=== PATIENT | male | born 1955 | race Caucasian/White ===

== ENCOUNTER 2016-06-03 11:32 | Emergency (ER) | payer OTHER ==
[2016-06-03 12:56] LABS: EOSINOPHIL 1.9 % (0-5); HCT 42.8 % (42.0-52.0); HGB 15.1 g/dl (13.2-18.0); LYMPHOCYTE 23.6 % (15-48); MCH 32.4 pg (25.0-31.0); MCHC 35.3 g/dL (32.0-36.0); MCV 91.8 fL (78.0-100.0); MONOCYTE 8.4 % (0-12); MPV 10.8 fL (6.0-9.5); NEUTROPHIL 65.1 % (41-80); PLT 202 K/uL (150-400); RBC 4.66 M/uL (4.70-6.00); RDW 14.8 % (11.5-14.0); WBC 6.8 K/uL (4.0-10.5)
[2016-06-03 13:02] LABS: TROPONIN T < 0.010 ng/mL
[2016-06-03 13:04] LABS: ALBUMIN 4.1 g/dL (3.5-5.0); BILIRUBIN - TOTAL 0.6 mg/dL (0.1-1.0); CREATININE 1.1 mg/dL (0.7-1.2); GLOBULIN (CALCULATION) 3.4 g/dL (2.2-4.2); POTASSIUM 4.1 mmol/L (3.5-5.1); TOTAL PROTEIN 7.5 g/dL (6.4-8.3)
[2016-06-03 13:20] LABS: CKMB 9.31 ng/mL (0.97-4.94)
[2016-06-03 14:46] LABS: TROPONIN T < 0.010 ng/mL
[2016-06-03 14:56] LABS: CKMB 7.83 ng/mL (0.97-4.94)
== END 2016-06-03 15:10 | disposition home or self-care (01) ==
LOC: FER 11:32
PROVIDERS: Nurse Practitioner Family
DX: J11.1 Influenza due to unidentified influenza virus with other respiratory manifestations (principal); I10 Essential (primary) hypertension; E78.5 Hyperlipidemia, unspecified; F17.210 Nicotine dependence, cigarettes, uncomplicated; Z79.82 Long term (current) use of aspirin; Z79.899 Other long term (current) drug therapy; Z87.09 Personal history of other diseases of the respiratory system; Z95.1 Presence of aortocoronary bypass graft
CPT/HCPCS: 36415; 71020; 80053; 82550; 82553; 84484; 85025; 87804; 87899; 93005; 94640

== ENCOUNTER 2021-12-20 17:23 | Emergency (ER) | payer OTHER ==
[2021-12-20 17:42] LABS: BASOPHIL 0.9 % (0-2); EOSINOPHIL 4.1 % (0-7); HCT 40.1 % (42.0-52.0); HGB 13.5 g/dl (13.2-18.0); LYMPHOCYTE 28.3 % (15-48); MCH 31.3 pg (25.0-31.0); MCHC 33.7 g/dL (32.0-36.0); MCV 92.8 fL (78.0-100.0); MONOCYTE 7.9 % (0-12); MPV 10.2 fL (6.0-9.5); NEUTROPHIL 58.5 % (41-80); NRBC 0; PLT 310 K/uL (150-400); RBC 4.32 M/uL (4.70-6.00); RDW 18.1 % (11.5-14.0)
[2021-12-20 18:01] LABS: ALBUMIN 3.7 g/dL (3.4-5.0); BILIRUBIN - TOTAL 0.3 mg/dL (0.2-1.0); BUN/CREAT RATIO (CALC) 15.3 RATIO; CREATININE 1.37 mg/dL (0.67-1.17); GLOBULIN (CALCULATION) 4.6 g/dL; MAGNESIUM 1.6 mg/dL (1.8-2.4); POTASSIUM 4.4 mmol/L (3.5-5.1); TOTAL PROTEIN 8.3 g/dL (6.4-8.2)
[2021-12-20 18:03] LABS: INR 1.06 (0.9-1.2); PROTHROMBIN TIME 13.5 SECONDS (11.9-13.9)
[2021-12-20 18:04] LABS: PTT 35.2 SECONDS (24.9-34.6)
== END 2021-12-20 19:05 | disposition other institution (70) ==
LOC: FER 17:23
PROVIDERS: Emergency Medicine
DX: I47.2 Ventricular tachycardia (principal); I20.0 Unstable angina; I10 Essential (primary) hypertension; E11.9 Type 2 diabetes mellitus without complications; F17.200 Nicotine dependence, unspecified, uncomplicated; Z28.310 Unvaccinated for COVID-19
CPT/HCPCS: 36415; 71045; 80053; 83735; 84484; 85025; 85610; 85730; 93005; 94640; 94664; J0282; J1644; J3475; J7040; J7050; J7060